=== PATIENT | female | born 1970 | race African-American/Black ===

== ENCOUNTER 2018-02-02 16:42 | Emergency (ER) | payer BC ==
[~2018-02-02] VITALS: Ht 167.6 cm; Wt 67.0 kg
[2018-02-02] MEDS ORDERED: ONDANSETRON 4MG ODT PO ONE (18:00)
[2018-02-02] MEDS ORDERED: IBUPROFEN 600MG TABLET PO ONE (18:00)
[2018-02-02 18:05] LABS: BASOPHILS % 0.9 % (0.0-2.0); EOSINOPHILS % 1.9 % (0.0-5.0); HEMATOCRIT. 38.3 % (36.0-48.0); HEMOGLOBIN. 12.8 g/dL (12.0-16.0); LYMPHOCYTES % 37.9 % (20.0-50.0); MEAN CORPUSCULAR HEMOGLOBIN 28.2 pg (28.0-32.0); MEAN CORPUSCULAR VOLUME 84.5 fL (81.0-99.0); MEAN PLATELET VOLUME 9.3 fl (7.4-10.4); MONOCYTES % 6.6 % (2.0-8.0); NEUTROPHILS % 52.7 % (40.0-76.0); PLATELET 268 x1000/uL (130-400); RED BLOOD CELL COUNT 4.53 mill/uL (4.2-5.4); RED CELL DISTRIBUTION WIDTH 15.2 % (11.6-14.6)
[2018-02-02 18:07] LABS: CHLORIDE 104 mEq/L (98-107)
[2018-02-02 18:29] LABS: HCG SCREEN NEGATIVE
[2018-02-02 18:46] LABS: INR 1.1; PROTHROMBIN TIME 11.2 sec (9.4-11.6)
[2018-02-02 19:43] LABS: CLARITY URINE CLEAR (CLEAR); COLOR URINE YELLOW (YELLOW); KETONES URINE NEGATIVE (NEGATIVE); LEUKOCYTE ESTERASE URINE NEGATIVE (NEGATIVE); NITRITE URINE NEGATIVE (NEGATIVE); OCCULT BLOOD URINE TRACE (NEGATIVE); PROTEIN URINE NEGATIVE (NEGATIVE); SPECIFIC GRAVITY URINE 1.018 (1.005-1.030); UROBILINOGEN URINE 0.2 E.U./dL (0.2-1.0)
[2018-02-02 20:07] LABS: CHLORIDE 105 mEq/L (98-107)
[2018-02-02] MEDS ORDERED: ONDANSETRON HCL 4MG/2ML VIAL IV STA (21:29)
[2018-02-02] MEDS ORDERED: SODIUM CHLORIDE 0.9% 1,000 ML IV ONE (21:29)
[2018-02-02] MEDS ORDERED: KETOROLAC 30MG/ML VIAL IV STA (21:29)
[2018-02-02] MEDS ORDERED: MORPHINE SULFATE 4 MG/ML CPJ (NOT FOR IM USE) IV STA (21:29)
[2018-02-02 23:42] VITALS: BP 152/75
== END 2018-02-02 23:44 | disposition home or self-care (01) ==
LOC: ER 19:11
DX: D25.2 Subserosal leiomyoma of uterus (principal); N20.0 Calculus of kidney
CPT/HCPCS: 36415; 74176; 80048; 80053; 81003; 83690; 84703; 85025; 85610; 96361; 96374; 96375; 99285; J1885; J2405; J7030; Q0162; Z7610; J2270

== ENCOUNTER 2019-02-18 07:19 | Emergency (ER) | payer BC ==
[~2019-02-18] VITALS: Ht 167.6 cm; Wt 68.0 kg
[2019-02-18] MEDS ORDERED: KETOROLAC 30MG/ML VIAL IV STA (08:14)
[2019-02-18] MEDS ORDERED: SODIUM CHLORIDE 0.9% 1,000 ML IV ONE (08:14)
[2019-02-18 08:28] LABS: EOSINOPHILS % 1.1 % (0.0-5.0); HEMOGLOBIN. 14.6 g/dL (12.0-16.0); LYMPHOCYTES % 30.5 % (20.0-50.0); MEAN CORPUSCULAR HEMOGLOBIN 29.6 pg (28.0-32.0); MEAN CORPUSCULAR VOLUME 87.2 fL (81.0-99.0); MEAN PLATELET VOLUME 8.8 fl (7.4-10.4); MONOCYTES % 4.5 % (2.0-8.0); NEUTROPHILS % 62.9 % (40.0-76.0); PLATELET 254 x1000/uL (130-400); RED BLOOD CELL COUNT 4.93 mill/uL (4.2-5.4); RED CELL DISTRIBUTION WIDTH 13.4 % (11.6-14.6)
[2019-02-18 08:33] LABS: CHLORIDE 107 mEq/L (98-107)
[2019-02-18 09:24] LABS: CLARITY URINE CLEAR (CLEAR); COLOR URINE YELLOW (YELLOW); KETONES URINE NEGATIVE (NEGATIVE); LEUKOCYTE ESTERASE URINE NEGATIVE (NEGATIVE); NITRITE URINE NEGATIVE (NEGATIVE); OCCULT BLOOD URINE TRACE (NEGATIVE); PH URINE 5.5 (4.5-8.0); PROTEIN URINE NEGATIVE (NEGATIVE); SPECIFIC GRAVITY URINE 1.013 (1.005-1.030); UROBILINOGEN URINE 0.2 E.U./dL (0.2-1.0)
[2019-02-18 09:38] VITALS: BP 166/68
== END 2019-02-18 09:50 | disposition home or self-care (01) ==
LOC: ER 07:26
DX: R10.0 Acute abdomen (principal); D25.2 Subserosal leiomyoma of uterus; N20.0 Calculus of kidney
CPT/HCPCS: 36415; 74176; 80053; 81003; 83690; 85025; 96374; 99284; J1885; J7030